=== PATIENT | male | born 1945 | race African-American/Black ===

== ENCOUNTER 2017-06-05 20:50 | Emergency (ER) | payer MEDICAID, MEDICARE ==
[~2017-06-05] VITALS: Ht 177.8 cm; Wt 120.0 kg
[2017-06-06] MEDS ORDERED: ENALAPRIL 2.5MG/2ML VIAL 2ML IV ONE (00:15)
[2017-06-06 00:39] LABS: BASOPHILS % 0.6 % (0.0-2.0); EOSINOPHILS % 5.4 % (0.0-5.0); HEMATOCRIT. 40.9 % (42.0-52.0); HEMOGLOBIN. 13.3 g/dL (14.0-18.0); LYMPHOCYTES % 8.4 % (20.0-50.0); MEAN CORPUSCULAR HEMOGLOBIN 28.7 pg (28.0-32.0); MEAN CORPUSCULAR VOLUME 88.3 fL (80.0-94.0); MEAN PLATELET VOLUME 8.7 fl (7.4-10.4); MONOCYTES % 5.5 % (2.0-8.0); NEUTROPHILS % 80.1 % (40.0-76.0); PLATELET 231 x1000/uL (130-400); RED BLOOD CELL COUNT 4.63 mill/uL (4.7-6.1); RED CELL DISTRIBUTION WIDTH 16.6 % (11.6-14.6)
[2017-06-06 00:47] LABS: INR 1.2; PROTHROMBIN TIME 12.3 sec (9.4-11.6)
[2017-06-06] MEDS ORDERED: CLONIDINE 0.3MG TABLET PO ONE (01:45)
[2017-06-06 03:24] VITALS: BP 142/100
== END 2017-06-06 04:15 | disposition home or self-care (01) ==
LOC: ER 20:50
DX: R04.0 Epistaxis (principal); I10 Essential (primary) hypertension; I49.9 Cardiac arrhythmia, unspecified; M10.9 Gout, unspecified; Z85.038 Personal history of other malignant neoplasm of large intestine
CPT/HCPCS: 36415; 80048; 85025; 85610; 86850; 86900; 86901; 96374; 99284; J3490

== ENCOUNTER 2017-07-23 03:50 | Emergency (ER) | payer MEDICARE, MEDICAID ==
[~2017-07-23] VITALS: Ht 170.2 cm; Wt 113.0 kg
[2017-07-23 05:18] LABS: HEMATOCRIT. 41.7 % (42.0-52.0); HEMOGLOBIN. 13.3 g/dL (14.0-18.0); MEAN CORPUSCULAR HEMOGLOBIN 27.5 pg (28.0-32.0); MEAN CORPUSCULAR VOLUME 86.4 fL (80.0-94.0); MEAN PLATELET VOLUME 9.1 fl (7.4-10.4); PLATELET 146 x1000/uL (130-400); RED BLOOD CELL COUNT 4.83 mill/uL (4.7-6.1); RED CELL DISTRIBUTION WIDTH 18.8 % (11.6-14.6)
[2017-07-23 05:28] LABS: CHLORIDE 110 mEq/L (98-107)
[2017-07-23 05:50] LABS: AMMONIA < 10 uMol/L (<32)
[2017-07-23] MEDS ORDERED: SODIUM CHLORIDE 0.9% 1,000 ML IV SCH (05:58)
[2017-07-23] MEDS ORDERED: SODIUM CHLORIDE 0.9% 1,000 ML IV ONE ×2 (06:01→06:03)
[2017-07-23 06:50] VITALS: BP 212/133
[2017-07-23 06:52] LABS: PLATELET ESTIMATE NORMAL
== END 2017-07-23 08:54 | disposition left against medical advice (07) ==
LOC: ER 03:50 → CMPBEDREQ 09:14 → SUPCPDRO 09:24
DX: G93.40 Encephalopathy, unspecified (principal); R41.82 Altered mental status, unspecified; I10 Essential (primary) hypertension; N19 Unspecified kidney failure; J98.11 Atelectasis; I51.7 Cardiomegaly; Z85.038 Personal history of other malignant neoplasm of large intestine
CPT/HCPCS: 36415; 70450; 71045; 80053; 82140; 84484; 85025; 93005; 99285; J7030

== ENCOUNTER 2017-08-01 11:15 | Inpatient (IN) | payer MEDICARE, MEDICAID ==
[~2017-08-01] VITALS: Ht 172.7 cm; Wt 119.8 kg
[2017-08-01] MEDS ORDERED: SODIUM CHLORIDE 0.9% 1,000 ML IV ONE ×4 (11:43→13:45)
[2017-08-01 12:05] LABS: HEMATOCRIT. 39.8 % (42.0-52.0); HEMOGLOBIN. 12.9 g/dL (14.0-18.0); MEAN CORPUSCULAR HEMOGLOBIN 27.4 pg (28.0-32.0); MEAN PLATELET VOLUME 9.5 fl (7.4-10.4); PLATELET 153 x1000/uL (130-400); RED BLOOD CELL COUNT 4.69 mill/uL (4.7-6.1); RED CELL DISTRIBUTION WIDTH 19.5 % (11.6-14.6)
[2017-08-01 12:09] LABS: CHLORIDE 100 mEq/L (98-107)
[2017-08-01 12:12] LABS: INR 1.2; PROTHROMBIN TIME 12.8 sec (9.4-11.6)
[2017-08-01 12:13] LABS: ETHANOL BLOOD < 10 mg/dL
[2017-08-01 12:16] LABS: AMMONIA < 10 uMol/L (<32)
[2017-08-01 12:32] LABS: PLATELET ESTIMATE NORMAL
[2017-08-01] MEDS ORDERED: ASPIRIN 81MG TABLET PO ONE (13:00)
[2017-08-01 13:02] LABS: CREATINE KINASE 34867 IU/L (39-308)
[2017-08-01 14:58] LABS: CLARITY URINE TURBID (CLEAR); COLOR URINE DARK YELLOW (YELLOW); KETONES URINE NEGATIVE (NEGATIVE); LEUKOCYTE ESTERASE URINE 1+ (NEGATIVE); NITRITE URINE NEGATIVE (NEGATIVE); OCCULT BLOOD URINE 3+ (NEGATIVE); PROTEIN URINE 1+ (NEGATIVE); SPECIFIC GRAVITY URINE 1.019 (1.005-1.030)
[2017-08-01] MEDS ORDERED: NA PHOS,M-B/NA PHOS,DI-BA ENEMA 118ML PR PRN (15:00)
[2017-08-01] MEDS ORDERED: LEVOFLOXACIN 500MG PREMIX 100 ML IV SCH (15:00)
[2017-08-01] MEDS ORDERED: DIPHENHYDRAMINE 50MG/ML VIAL IV PRN (15:00)
[2017-08-01] MEDS ORDERED: ONDANSETRON HCL 4MG/2ML VIAL IV PRN (15:00)
[2017-08-01] MEDS ORDERED: DOCUSATE SODIUM 100MG CAPSULE PO PRN (15:00)
[2017-08-01] MEDS ORDERED: MAGNESIUM/ALUMINUM HYDROXIDE/SIMETHICONE 30ML UDC PO PRN (15:00)
[2017-08-01] MEDS ORDERED: IPRATROPIUM/ALBUTEROL 0.5-3(2.5)MG/3ML NEB INH PRN (15:00)
[2017-08-01] MEDS ORDERED: GUAIFENESIN 200MG/10ML SUGAR FREE UDC PO PRN (15:00)
[2017-08-01] MEDS ORDERED: NITROGLYCERIN 0.4MG TABLET SL SL PRN (15:00)
[2017-08-01] MEDS ORDERED: ACETAMINOPHEN 325MG TABLET PO PRN (15:00)
[2017-08-01] MEDS ORDERED: CEFTRIAXONE 1 G PREMIX 50 ML IV ONE (15:15)
[2017-08-01 15:17] LABS: *AMPHETAMINES SCREEN URINE NEGATIVE (NEGATIVE); *BARBITURATES SCREEN URINE NEGATIVE (NEGATIVE)
[2017-08-01 15:19] LABS: *BENZODIAZEPINES SCREEN URINE NEGATIVE (NEGATIVE); *COCAINE SCREEN URINE NEGATIVE (NEGATIVE); CANNABINOID URINE SCREEN NEGATIVE (NEGATIVE); METHADONE URINE SCREEN NEGATIVE (NEGATIVE); OPIATES URINE SCREEN NEGATIVE (NEGATIVE); PHENCYCLIDINE URINE SCREEN NEGATIVE (NEGATIVE)
[2017-08-01 17:27] LABS: T4 FREE 0.77 ng/dL (0.76-1.46)
[2017-08-01 18:21] LABS: FOLIC ACID (FOLATE) SERUM 13.6 ng/mL (>5.38)
[2017-08-01] MEDS ORDERED: CALCIUM CHLORIDE 1,000 MG in DEXT 5% WATER 90 ML IV NR (20:45)
[2017-08-01] MEDS ORDERED: LEVOFLOXACIN 500MG PREMIX 100 ML IV NR (20:45)
[2017-08-01] MEDS: SODIUM CHLORIDE 0.9% 1,000 ML IV SCH (21:16)
[2017-08-01] MEDS: CALCIUM CARBONATE 1250MG TABLET (500MG ELEMENTAL CALCIUM) PO SCH (21:16)
[2017-08-01 21:30] VITALS: BP 114/74
[2017-08-01] MEDS ORDERED: ENOXAPARIN 30MG/0.3ML SYR SUBCUT SCH (22:00)
[2017-08-01] MEDS ORDERED: ENOXAPARIN 80MG/0.8ML SYR SUBCUT NR (22:15)
[2017-08-01 22:59] VITALS: BP 114/74
[2017-08-02] VITALS (12 sets, daily range): BP systolic 123–154; BP diastolic 62–99
[2017-08-02] MEDS: AMLODIPINE 2.5MG TABLET PO SCH ×3 (00:22→20:41)
[2017-08-02] MEDS: SODIUM CHLORIDE 0.9% 1,000 ML IV SCH ×3 (00:27→17:10)
[2017-08-02 06:44] LABS: HEMATOCRIT. 38.7 % (42.0-52.0); HEMOGLOBIN. 12.5 g/dL (14.0-18.0); MEAN CORPUSCULAR HEMOGLOBIN 27.7 pg (28.0-32.0); MEAN PLATELET VOLUME 10.1 fl (7.4-10.4); PLATELET 148 x1000/uL (130-400); RED CELL DISTRIBUTION WIDTH 19.8 % (11.6-14.6)
[2017-08-02 07:06] LABS: CHLORIDE 104 mEq/L (98-107)
[2017-08-02 07:24] LABS: LDL CHOLESTEROL 87 mg/dL (5-100)
[2017-08-02 07:26] LABS: HDL CHOLESTEROL 36 mg/dL (40-59)
[2017-08-02 08:48] LABS: CREATINE KINASE 24555 IU/L (39-308)
[2017-08-02] MEDS ORDERED: CEFTRIAXONE 1 G PREMIX 50 ML IV SCH (09:00)
[2017-08-02] MEDS ORDERED: CALCIUM CARBONATE 1250MG TABLET (500MG ELEMENTAL CALCIUM) PO SCH (10:00)
[2017-08-02] MEDS ORDERED: ALBUMIN HUMAN 25GM/100ML (25%) IV NR (10:00)
[2017-08-02] MEDS: ASPIRIN 325MG EC TABLET PO SCH (10:22)
[2017-08-02] MEDS: PANTOPRAZOLE SODIUM 40 MG/VIAL IV SCH (10:22)
[2017-08-02] MEDS: ZINC SULFATE 220 MG ( 50 ) CAPSULE PO SCH (10:22)
[2017-08-02] MEDS: CALCIUM CARBONATE 1250MG TABLET (500MG ELEMENTAL CALCIUM) PO SCH ×2 (10:33→17:10)
[2017-08-02] MEDS: CITRIC ACID/SODIUM CITRATE SOLN 30ML UDC PO SCH ×2 (10:55→20:40)
[2017-08-02] MEDS: CALCITRIOL 0.25MCG CAPSULE PO SCH (11:48)
[2017-08-02 13:18] LABS: PLATELET ESTIMATE NORMAL
[2017-08-02 13:24] LABS: *AMPHETAMINES SCREEN URINE NEGATIVE (NEGATIVE)
[2017-08-02 13:25] LABS: *BARBITURATES SCREEN URINE NEGATIVE (NEGATIVE); *BENZODIAZEPINES SCREEN URINE NEGATIVE (NEGATIVE); *COCAINE SCREEN URINE NEGATIVE (NEGATIVE); METHADONE URINE SCREEN NEGATIVE (NEGATIVE); OPIATES URINE SCREEN NEGATIVE (NEGATIVE)
[2017-08-02 13:26] LABS: CANNABINOID URINE SCREEN NEGATIVE (NEGATIVE); PHENCYCLIDINE URINE SCREEN NEGATIVE (NEGATIVE)
[2017-08-02] MEDS: CEFTRIAXONE 1 G PREMIX 50 ML IV SCH (17:09)
[2017-08-02] MEDS ORDERED: ENOXAPARIN 80MG/0.8ML SYR SUBCUT SCH (21:00)
[2017-08-03] VITALS (22 sets, daily range): BP systolic 132–185; BP diastolic 51–122
[2017-08-03] MEDS: SODIUM CHLORIDE 0.9% 1,000 ML IV SCH (06:10)
[2017-08-03] MEDS: CLONIDINE 0.1MG TABLET PO PRN (06:14)
[2017-08-03 07:32] LABS: HEMATOCRIT. 37.8 % (42.0-52.0); HEMOGLOBIN. 12.1 g/dL (14.0-18.0); MEAN CORPUSCULAR HEMOGLOBIN 27.4 pg (28.0-32.0); MEAN CORPUSCULAR VOLUME 85.5 fL (80.0-94.0); MEAN PLATELET VOLUME 10.1 fl (7.4-10.4); PLATELET 161 x1000/uL (130-400); RED BLOOD CELL COUNT 4.42 mill/uL (4.7-6.1)
[2017-08-03 08:03] LABS: CHLORIDE 104 mEq/L (98-107)
[2017-08-03] MEDS: AMLODIPINE 2.5MG TABLET PO SCH ×2 (09:00→21:15)
[2017-08-03] MEDS: ASPIRIN 325MG EC TABLET PO SCH (09:00)
[2017-08-03] MEDS: PANTOPRAZOLE SODIUM 40 MG/VIAL IV SCH (10:03)
[2017-08-03] MEDS: ZINC SULFATE 220 MG ( 50 ) CAPSULE PO SCH (10:03)
[2017-08-03] MEDS: CALCITRIOL 0.25MCG CAPSULE PO SCH (10:04)
[2017-08-03] MEDS: CITRIC ACID/SODIUM CITRATE SOLN 30ML UDC PO SCH ×2 (10:04→21:16)
[2017-08-03] MEDS ORDERED: LIDOCAINE HCL/PF 1% 10 MG/ML 5ML VIAL ONE (10:34)
[2017-08-03 11:01] LABS: PHOSPHORUS 10.1 mg/dL (2.5-4.9)
[2017-08-03] MEDS: CALCIUM CARBONATE 1250MG TABLET (500MG ELEMENTAL CALCIUM) PO SCH ×2 (12:43→18:45)
[2017-08-03 12:51] LABS: HEPATITIS B SURFACE ANTIGEN NEGATIVE
[2017-08-03 13:17] LABS: HEPATITIS B CORE AB IGM NEGATIVE
[2017-08-03 13:18] LABS: HEPATITIS A AB IGM NEGATIVE (NEGATIVE)
[2017-08-03] MEDS ORDERED: AMLODIPINE 2.5MG TABLET PO SCH (15:45)
[2017-08-03] MEDS: CEFTRIAXONE 1 G PREMIX 50 ML IV SCH (18:38)
[2017-08-03] MEDS: CARVEDILOL 12.5MG TABLET PO SCH ×2 (18:46→21:16)
[2017-08-03] MEDS: LOSARTAN POTASSIUM 25 MG TABLET PO SCH (18:46)
[2017-08-03] MEDS ORDERED: LEVOFLOXACIN 250MG PREMIX 50 ML IV SCH (21:00)
[2017-08-03] MEDS ORDERED: ENOXAPARIN 120MG/0.8ML SYR SUBCUT SCH (21:00)
[2017-08-04] VITALS (8 sets, daily range): BP systolic 116–205; BP diastolic 52–123
[2017-08-04] MEDS: CLONIDINE 0.1MG TABLET PO PRN ×2 (02:01→09:04)
[2017-08-04 05:00] LABS: PLATELET ESTIMATE NORMAL
[2017-08-04 06:54] LABS: HEMATOCRIT. 39.7 % (42.0-52.0); HEMOGLOBIN. 12.9 g/dL (14.0-18.0); MEAN CORPUSCULAR HEMOGLOBIN 27.6 pg (28.0-32.0); MEAN PLATELET VOLUME 10.4 fl (7.4-10.4); PLATELET 164 x1000/uL (130-400); RED BLOOD CELL COUNT 4.67 mill/uL (4.7-6.1); RED CELL DISTRIBUTION WIDTH 19.7 % (11.6-14.6)
[2017-08-04 08:35] LABS: CREATINE KINASE MB FRACTION 55.6 ng/mL (0.5-3.6)
[2017-08-04 08:42] LABS: PHOSPHORUS 8.6 mg/dL (2.5-4.9)
[2017-08-04] MEDS ORDERED: CARVEDILOL 3.125 MG TABLET PO SCH (09:00)
[2017-08-04] MEDS: CITRIC ACID/SODIUM CITRATE SOLN 30ML UDC PO SCH (09:03)
[2017-08-04] MEDS: PANTOPRAZOLE SODIUM 40 MG/VIAL IV SCH (09:04)
[2017-08-04] MEDS: LOSARTAN POTASSIUM 25 MG TABLET PO SCH (09:04)
[2017-08-04] MEDS: ASPIRIN 325MG EC TABLET PO SCH (09:04)
[2017-08-04] MEDS: CALCITRIOL 0.25MCG CAPSULE PO SCH (09:04)
[2017-08-04] MEDS: CALCIUM CARBONATE 1250MG TABLET (500MG ELEMENTAL CALCIUM) PO SCH ×2 (09:04→16:24)
[2017-08-04] MEDS: AMLODIPINE 2.5MG TABLET PO SCH (09:05)
[2017-08-04] MEDS: ZINC SULFATE 220 MG ( 50 ) CAPSULE PO SCH (09:05)
[2017-08-04 10:09] LABS: VITAMIN D 25-OH 47.6 ng/mL (30.0-100.0)
[2017-08-04 10:33] LABS: CREATINE KINASE 17600 IU/L (39-308)
[2017-08-04] MEDS ORDERED: CALCIUM ACETATE 667MG CAPSULE PO SCH (13:00)
[2017-08-04] MEDS ORDERED: DEXTROSE 50% WATER 50ML SYRINGE IV ONE (14:55)
[2017-08-04] MEDS ORDERED: EPINEPHRINE 0.1MG/ML (1:10,000) 10ML SYR ONE ×3 (14:55→17:06)
[2017-08-04] MEDS ORDERED: SODIUM BICARBONATE 7.5% 0.9 MEQ/ML 50ML SYR IV ONE ×2 (14:55→17:00)
[2017-08-04] MEDS: CEFTRIAXONE 1 G PREMIX 50 ML IV SCH (16:24)
[2017-08-04] MEDS ORDERED: AMIODARONE HCL 50MG/ML 3ML VIAL IV ONE (17:00)
[2017-08-04] MEDS ORDERED: LOSARTAN POTASSIUM 25 MG TABLET PO SCH (17:00)
[2017-08-04] MEDS ORDERED: ATROPINE SULFATE 0.1MG/ML 10ML DISP.SYRIN ONE (17:00)
[2017-08-04] MEDS ORDERED: AMLODIPINE 5MG TABLET PO SCH (21:00)
[2017-08-05 15:08] LABS: NUCLEATED RED BLOOD CELLS 1 /100 WBC; PLATELET ESTIMATE NORMAL
[2017-08-06 08:14] LABS: A/G RATIO 0.8 (0.7-1.7); ALBUMIN 2.6 g/dL (2.9-4.4); ALPHA-1-GLOBULIN 0.3 g/dL (0.0-0.4); ALPHA-2-GLOBULIN 0.8 g/dL (0.4-1.0); BETA GLOBULIN 0.7 g/dL (0.7-1.3); GAMMA GLOBULINS 1.5 g/dL (0.4-1.8); GLOBULIN TOTAL 3.3 g/dL (2.2-3.9); M-SPIKE Not Observed g/dL (Not Observed); TOTAL PROTEIN SERUM 5.9 g/dL (6.0-8.5)
== END 2017-08-04 21:00 | disposition expired | DRG 871 ==
LOC: ER 11:38 → 5EST 13:35 → EDBEDREQSVC 13:40 → EDBEDREQ 13:40 → ENRESERV 19:14 → 5EST 08-04 13:20 → MICUSO 08-04 17:10
PROVIDERS: ADMIT Internal Medicine; ATTEND Internal Medicine
PROC: 02H633Z Insertion of Infusion Device into Right Atrium, Percutaneous Approach (ICD-10-PCS; 2017-08-03)
PROC: B244ZZZ Ultrasonography of Right Heart (ICD-10-PCS; 2017-08-03)
PROC: 5A12012 Performance of Cardiac Output, Single, Manual (ICD-10-PCS; principal; 2017-08-04)
PROC: 5A1935Z Respiratory Ventilation, Less than 24 Consecutive Hours (ICD-10-PCS; 2017-08-04)
PROC: 5A2204Z Restoration of Cardiac Rhythm, Single (ICD-10-PCS; 2017-08-04)
PROC: 0BH17EZ Insertion of Endotracheal Airway into Trachea, Via Natural or Artificial Opening (ICD-10-PCS; 2017-08-04)
DX: A41.9 Sepsis, unspecified organism (principal); I21.4 Non-ST elevation (NSTEMI) myocardial infarction; N17.0 Acute kidney failure with tubular necrosis; E43 Unspecified severe protein-calorie malnutrition; G92 Toxic encephalopathy; E83.51 Hypocalcemia; I27.20 Pulmonary hypertension, unspecified; M62.82 Rhabdomyolysis; N18.4 Chronic kidney disease, stage 4 (severe); N39.0 Urinary tract infection, site not specified; Z68.41 Body mass index [BMI] 40.0-44.9, adult; I42.9 Cardiomyopathy, unspecified; I49.01 Ventricular fibrillation; I46.9 Cardiac arrest, cause unspecified; W19.XXXA Unspecified fall, initial encounter; R74.0 Nonspecific elevation of levels of transaminase and lactic acid dehydrogenase [LDH]; D64.9 Anemia, unspecified; R91.8 Other nonspecific abnormal finding of lung field; I12.9 Hypertensive chronic kidney disease with stage 1 through stage 4 chronic kidney disease, or unspecified chronic kidney disease; H54.61 Unqualified visual loss, right eye, normal vision left eye; I35.1 Nonrheumatic aortic (valve) insufficiency; S81.812A Laceration without foreign body, left lower leg, initial encounter; S81.811A Laceration without foreign body, right lower leg, initial encounter; Y93.89 Activity, other specified; Y92.89 Other specified places as the place of occurrence of the external cause; Y99.8 Other external cause status; Z78.1 Physical restraint status; Z82.49 Family history of ischemic heart disease and other diseases of the circulatory system; Z85.9 Personal history of malignant neoplasm, unspecified
CPT/HCPCS: 36415; 36556; 70450; 71045; 71250; 76700; 76937; 80048; 80053; 80061; 80305; 81003; 82140; 82306; 82330; 82550; 82553; 82607; 82746; 82962; 83036; 83540; 83550; 83605; 83735; 83880; 83970; 84100; 84155; 84165; 84439; 84443; 84484; 85025; 85610; 86705; 86709; 86803; 87040; 87086; 87340; 87493; 93005; 93306; 93970; 96365; 96367; 96368; 97162; 99291; C1752; C9113; G0482; J0696; J1650; J1956; J3490; J7030; J7040; J7060; J7620; P9047; A4315